=== PATIENT | female | born 1990 | race Caucasian/White ===

== ENCOUNTER 2020-10-01 19:56 | Emergency (ER) | payer OTHER ==
[~2020-10-01] VITALS: Ht 165.1 cm; Wt 74.8 kg
[~2020-10-01 19:56] MED LIST: AZIT500 PO; CAFFERGOT; Cleocin HCl300 MG PO; DIPH50 PO
[2020-10-02] MEDS ORDERED: NITR100CA PO (00:09)
[2020-10-02] MEDS ORDERED: PHENA200 PO (00:09)
== END 2020-10-02 00:14 | disposition home or self-care (01) ==
LOC: ER 19:56
DX: N39.0 Urinary tract infection, site not specified (principal); Z87.891 Personal history of nicotine dependence
CPT/HCPCS: 87077; 87086; 87186; 99283; A9270

== ENCOUNTER 2021-06-20 15:19 | Emergency (ER) | payer OTHER ==
[~2021-06-20] VITALS: Ht 165.1 cm; Wt 74.8 kg
[~2021-06-20 15:19] MED LIST changes: +NITR100CA PO; +PHENA200 PO
== END 2021-06-20 16:01 | disposition home or self-care (01) ==
LOC: ER 15:19
DX: M25.521 Pain in right elbow (principal); W00.0XXA Fall on same level due to ice and snow, initial encounter
CPT/HCPCS: 73080; 90471; 99283-25

== ENCOUNTER → 2021-09-10 | Outpatient (CLI) | payer OTHER | LOC: LAB SHORT 12:21 | DX: O20.0 Threatened abortion (principal) | CPT/HCPCS: 84702 ==

== ENCOUNTER → 2021-09-20 | Outpatient (CLI) | payer OTHER | END | disposition home or self-care (01) | LOC: LAB 14:30 → LAB SHORT 14:30 | DX: O02.1 Missed abortion (principal) | CPT/HCPCS: 84702 ==